=== PATIENT | female | born 1970 | race Hispanic/Latino ===

== ENCOUNTER 2020-03-20 10:59 | Inpatient (IN) | payer OTHER ==
[~2020-03-20] VITALS: Ht 162.6 cm; Wt 90.7 kg
[2020-03-20 11:44] LABS: BASOPHILS % 0.2 % (0.0-1.0); HEMATOCRIT 41.9 % (34.2-44.1); HEMOGLOBIN 13.7 g/dL (12.0-16.0); LYMPHOCYTES # (AUTO) 1.5 (1.0-3.2); LYMPHOCYTES % 31.5 % (18.0-39.1); MEAN CORPUSCULAR HEMOGLOBIN 27.7 pg (28-32); MEAN CORPUSCULAR HGB CONC 32.7 g/dL (31-35); MEAN CORPUSCULAR VOLUME 84.6 fL (81-99); MONOCYTES # (AUTO) 0.5 (0.2-0.8); MONOCYTES % 9.9 % (4.4-11.3); NEUTROPHILS # (AUTO) 2.8 (2.1-6.9); NEUTROPHILS % 58.2 % (38.7-80.0); PLATELET COUNT 266 x10e3/uL (140-360); RED BLOOD COUNT 4.95 x10e6/uL (3.6-5.1); RED CELL DISTRIBUTION WIDTH 12.9 % (11.7-14.4)
[2020-03-20 12:05] LABS: ALANINE AMINOTRANSFERASE 47 IU/L (0-55); ALBUMIN 3.6 g/dL (3.5-5.0); ALBUMIN/GLOBULIN RATIO 0.8 (0.8-2.0); ALKALINE PHOSPHATASE 71 IU/L (40-150); ANION GAP 13.6 mmol/L (8-16); BLOOD UREA NITROGEN 10 mg/dL (7-26); BUN/CREATININE RATIO 13 (6-25); CALCIUM 9.3 mg/dL (8.4-10.2); CARBON DIOXIDE 23 mmol/L (22-29); CHLORIDE 105 mmol/L (98-107); EST GLOMERULAR FILTRATION RATE > 60 ML/MIN (60-); GLUCOSE 113 mg/dL (74-118); POTASSIUM 3.6 mmol/L (3.5-5.1); SODIUM 138 mmol/L (136-145)
--- NOTE | 2020-03-20 13:06 | Diagnostic Imaging Report ---
EXAM: CHEST SINGLE (PORTABLE) DATE: 03/20/2020 12:40 PM INDICATION: Cold, chest pain COMPARISON: None FINDINGS/IMPRESSION: The trachea is midline. Mildly increased interstitial opacities present bilaterally with a lower lung zone predominance. Findings are nonspecific but can be seen in setting of edema or an atypical infectious/inflammatory process. There is no evidence for large focal consolidation, pneumothorax, or significant pleural effusion. The cardiomediastinal silhouette is within normal limits. No acute osseous abnormality is identified. Signed by: Dr. Diony Palacios MD on 03/20/2020 1:03 PM
--- NOTE | 2020-03-20 14:52 | Emergency Department Note ---
History of Present Illnes History of Present Illness Chief Complaint: COVID PUI History of Present Illness This is a 49 year old female arrives to the ED with complaints of cough fever and dyspnea on exertion. Chief Complaint Comment HERE FOR WEAKNESS, FEVER AND CHILLS AT HOME, DENIES SICK CONTACTS. FEEL AGITATED ON EXERTION. REPORTS COUGH, CONGESTION WELL. HAS BEEN OUT NOT WEARING A MASK. Historian: Patient Arrival Mode: Car Site Engineer Required: No Onset (how long ago): day(s) Severity: moderate Duration (how long): day(s) Timing of current episode: constant Progression: worsening Past Medical/Family History Physician Review I have reviewed the patient's past medical and family history. Any updates have been documented here. Past Medical History Recent Fever: No Clinical Suspicion of Infectio: No New/Unexplained Change in Ment: No Past Medical History: None Past Surgical History: None Social History Smoking Cessation: Never Smoker Counseling Performed: No Alcohol Use: None Any Illegal Drug Use: No TB Exposure/Symptoms: No Physically hurt or threatened: No Other Any Pre-Existing Lines (PICC,: No Is patient up to date on immun: Yes Last Flu: utd Last Pneumovax: utd Review of Systems Review of Systems Constitutional: chills, fever, malaise, weakness EENTM: no symptoms Cardiovascular: no symptoms Respiratory: no symptoms, cough, pain with cough Gastrointestinal: no symptoms Genitourinary: no symptoms Musculoskeletal: no symptoms Neurological: no symptoms Psychological: no symptoms Endocrine: no symptoms Hematological/Lymphatic: no symptoms Review of other systems All other systems reviewed and negative. Physical Exam Related Data Allergies: Coded Allergies: No Known Allergies (Unverified , 03/20/20) Triage Vital Signs Vital Signs Date Time Temp Pulse Resp B/P (MAP) Pulse Ox O2 Delivery O2 Flow Rate FiO2 03/20/20 11:08 100.6 86 16 107/74 94 Vital signs reviewed: Yes Physical Exam CONSTITUTIONAL Constitutional: well-developed, well-nourished, obese HENT HENT: normocephalic, atraumatic, oropharynx clear/moist, nose normal HENT L/R: left ext ear normal, right ext ear normal EYES Eyes: PERRL, conjunctivae normal NECK Neck: ROM normal PULMONARY Pulmonary: effort normal, breath sounds normal CARDIOVASCULAR Cardiovascular: regular rhythm, heart sounds normal, capillary refill normal, normal rate GASTROINTESTINAL Abdominal: soft, nontender, bowel sounds normal GENITOURINARY Genitourinary: exam deferred SKIN Skin: warm, dry MUSCULOSKELETAL Musculoskeletal: ROM normal, tenderness NEUROLOGICAL Neurological: alert, oriented x 3, no gross motor or sensory deficits PSYCHOLOGICAL Psychological: mood/affect normal, judgement normal Results Laboratory Result Diagram: 03/20/20 1140 03/20/20 1140 Laboratory Laboratory Tests Test 03/20/20 12:40 03/20/20 11:40 White Blood Count 4.85 x10e3/uL (4.8-10.8) Red Blood Count 4.95 x10e6/uL (3.6-5.1) Hemoglobin 13.7 g/dL (12.0-16.0) Hematocrit 41.9 % (34.2-44.1) Mean Corpuscular Volume 84.6 fL (81-99) Mean Corpuscular Hemoglobin 27.7 pg (28-32) Mean Corpuscular Hemoglobin Concent 32.7 g/dL (31-35) Red Cell Distribution Width 12.9 % (11.7-14.4) Platelet Count 266 x10e3/uL (140-360) Neutrophils (%) (Auto) 58.2 % (38.7-80.0) Lymphocytes (%) (Auto) 31.5 % (18.0-39.1) Monocytes (%) (Auto) 9.9 % (4.4-11.3) Eosinophils (%) (Auto) 0.0 % (0.0-6.0) Basophils (%) (Auto) 0.2 % (0.0-1.0) Neutrophils # (Auto) 2.8 (2.1-6.9) Lymphocytes # (Auto) 1.5 (1.0-3.2) Monocytes # (Auto) 0.5 (0.2-0.8) Eosinophils # (Auto) 0.0 (0.0-0.4) Basophils # (Auto) 0.0 (0.0-0.1) Absolute Immature Granulocyte (auto 0.01 x10e3/uL (0-0.1) Sodium Level 138 mmol/L (136-145) Potassium Level 3.6 mmol/L (3.5-5.1) Chloride Level 105 mmol/L (98-107) Carbon Dioxide Level 23 mmol/L (22-29) Anion Gap 13.6 mmol/L (8-16) Blood Urea Nitrogen 10 mg/dL (7-26) Creatinine 0.80 mg/dL (0.57-1.11) Estimat Glomerular Filtration Rate > 60 ML/MIN (60-) BUN/Creatinine Ratio 13 (6-25) Glucose Level 113 mg/dL (74-118) Calcium Level 9.3 mg/dL (8.4-10.2) Total Bilirubin 0.4 mg/dL (0.2-1.2) Aspartate Amino Transf (AST/SGOT) 36 IU/L (5-34) Alanine Aminotransferase (ALT/SGPT) 47 IU/L (0-55) Alkaline Phosphatase 71 IU/L (40-150) B-Type Natriuretic Peptide 12.7 pg/mL (0-100) Total Protein 8.0 g/dL (6.5-8.1) Albumin 3.6 g/dL (3.5-5.0) Globulin 4.4 g/dL (2.3-3.5) Albumin/Globulin Ratio 0.8 (0.8-2.0) Lab results reviewed: Yes Imaging Imaging results reviewed: Yes Procedures 12 Lead ECG Interpretation Rhythm: sinus rhythm Rate: normal ST segments normal: Yes Clinical Impression: normal ECG Critical Care Time Subsequent provider I assumed direction of critical care for this patient from another provider of my specialty. Assessment & Plan Assessment & Plan Final Impression: (1) DYSPNEA, UNSPECIFIED (2) COVID-19 Assessment & Plan History of similar to the ED with complaints of dyspnea and shortness of breath, found to be called if positive. Patient required hospital admission, pulmonary and infectious disease consult Depart Disposition: ADMITTED Last Vital Signs Date Time Temp Pulse Resp B/P (MAP) Pulse Ox O2 Delivery O2 Flow Rate FiO2 03/20/20 13:00 78 12 110/71 98 03/20/20 12:18 99.0 Home Meds Reported Medications Cephalexin Monohydrate (KEFLEX) 500 Mg Capsule 03/21/20 Azithromycin (Z-COURTNEY) 250 Mg Tablet, 250 MG PO UD, #1 UDPKT Z-Pack 03/21/20 Discontinued Reported Medications Triamcinolone Acet (TRIAMCINOLONE ACETONIDE) 15 Gm Cr 03/20/20 ALKA SAUCEDO DO Mar 20, 2020 14:52
[2020-03-20] MEDS ORDERED: TRIAMCINOLONE A15 G1 (15:13)
[2020-03-20 16:42] LABS: CLARITY,URINE SL CLOUDY (CLEAR); COLOR,URINE YELLOW (YELLOW); KETONES,URINE TRACE (NEGATIVE); LEUKOCYTE ESTERASE ,URINE NEGATIVE (NEGATIVE); NITRITE,URINE NEGATIVE (NEGATIVE); PROTEIN,URINE DIPSTICK 1+ (NEGATIVE)
[2020-03-20 16:43] LABS: BILIRUBIN,URINE NEGATIVE (NEGATIVE); URINE UROBILINOGEN 1 mg/dL (0.2 - 1)
[2020-03-20 16:55] LABS: AMORPHOUS SEDIMENT,URINE FEW (FEW); BACTERIA,URINE MODERATE /HPF; EPITHELIAL CELLS,URINE FEW /LPF; HYALINE CASTS 0-1 (0-1); RBC,URINE 0-5 /HPF (0-5)
--- NOTE | 2020-03-20 19:05 | Consultation ---
DATE OF CONSULTATION: Pulmonary Critical Care Consultation CHIEF COMPLAINT: Fever and cough for 5 days. HISTORY OF PRESENT ILLNESS: The patient is a 49-year-old woman. She has no prior cardiopulmonary history. She reports cough for 5 days. She also had fevers. She does not complain of dyspnea. She has no chest pain. No nausea or vomiting. She has no leg edema. PAST MEDICAL HISTORY: 1. No prior asthma or respiratory problems. 2. No prior heart problems. 3. No prior diabetes. PAST SURGICAL HISTORY: Noncontributory. ALLERGIES: NO KNOWN DRUG ALLERGIES. FAMILY HISTORY: Noncontributory. SOCIAL HISTORY: The patient is not a smoker. She is not a drinker. She lives at home with her kids and her . REVIEW OF SYSTEMS: Fever for 5 days. No headache. There is some cough. She is not having any chest pain. She has no shortness of breath. She has no abdominal pain. There is no nausea or vomiting. She has no leg edema. PHYSICAL EXAMINATION: VITAL SIGNS: The T-max is 100.6. The blood pressure is 105/68 and saturation is 96%. HEENT: Shows no facial swelling or erythema. CARDIAC: Reveals regular rate and rhythm with normal S1 and S2. LUNGS: Auscultation of lungs reveals crackles in both lung rodríguez. ABDOMEN: Soft and nontender. There is no rebound or guarding. EXTREMITIES: There is no leg edema. NEUROLOGIC: Shows no focal abnormalities. LABORATORY DATA: White blood cell count is 4.8 and the hemoglobin is 13.7. The platelet count is 266. BUN to creatinine ratio is normal. The other electrolytes are within normal limits. RADIOGRAPHIC DATA: Chest x-ray shows bilateral opacities suggestive of viral pneumonia. IMPRESSION: Viral pneumonia and COVID-19 infection. PLAN: 1. Observe in hospital. 2. Judicious use of IV fluids. 3. Avoid Motrin and use Tylenol. 4. Zithromax. 5. Consider convalescent plasma. Franklyn Newsome MD [facility]/BLAYNEL /[id number]
[2020-03-20] MEDS ORDERED: SODIUM CHLORIDE 0.9% 1000ML 1,000 ML IV SCH (19:15)
--- OUTSIDE RECORDS SUMMARY | 2020-03-20 19:31 | XMS REPORT | Continuity of Care Document ---
Author Author [facility] t Organization [facility] Address [address] 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 Allergies, Adverse Reactions, Alerts This patient has no known allergies or adverse reactions. Medications This patient has no known medications. Procedures This patient has no known procedures. Results Test Description Test Time Test Comments Results Result Comments Source CHEST SINGLE (PORTABLE) 2020-03-20 13:01:00 [place] [id number] Patient Name: TRISHA FOSTER MR #: [id number] : 1970 Age/Sex: 49/F Req #: [id number] Adm Physician: Ordered by: ALKA SAUCEDO DO Report #: [id number] Location: ER Room/Bed: Procedure: [id number] DX/CHEST SINGLE (PORTABLE) Exam Date: 03/20/20 Exam Time: 1240 REPORT STATUS: Signed EXAM: CHEST SINGLE (PORTABLE) DATE: 03/20/2020 12:40 PM INDICATION: Cold, chest pain COMPARISON: None FINDINGS/IMPRESSION: The trachea is midline. Mildly increased interstitial opacities present bilaterally with a lower lung zone predominance. Findings are nonspecific but can be seen in setting of edema or an atypical infectious/inflammatory process. There is no evidence for large focal consolidation, pneumothorax, or significant pleural effusion. The cardiomediastinal silhouette is within normal limits. No acute osseous abnormality is identified. Signed by: Dr. Diony Palacios MD on 03/20/2020 1:03 PM Dictated By: DIONY PALACIOS MD 1303 Transcribed By: SMA on 03/20/20 1303 COPY TO: ALKA SAUCEDO DO
[2020-03-20] MEDS ORDERED: CEFTRIAXONE SOD 1 GM/NS 50 ML 50 ML IV SCH (19:45)
[2020-03-20 20:00] VITALS: BP 105/70
[2020-03-20] MEDS ORDERED: AZITHROMYCIN 500MG/NS 250 ML 250 ML IV SCH (20:00)
--- NOTE | 2020-03-20 20:03 | NUR ---
Patient arrived to unit from ER via stretcher in stable condition, no s/s of distress at this time. Bed locked and in low position, side rails up x3, call light placed within reach. All safety measures in place. Will continue to monitor.
--- NOTE | 2020-03-20 21:19 | NUR ---
Spoke to Georgie BARAKAT regarding patient's elevated temperature of 101. Received orders to give Tylenol 650 mg PO Q6H PRN.
[2020-03-20 21:21] VITALS: BP 105/70
[2020-03-20] MEDS ORDERED: ACETAMINOPHEN 325 MG TAB PO PRN (21:30)
[2020-03-20 22:20] VITALS: BP 105/70
[2020-03-21] VITALS: BP 91/54
[2020-03-21 04:23] VITALS: BP 97/61
[2020-03-21 05:24] LABS: BASOPHILS % 0.2 % (0.0-1.0); EOSINOPHILS % 0.2 % (0.0-6.0); HEMATOCRIT 39.2 % (34.2-44.1); HEMOGLOBIN 12.9 g/dL (12.0-16.0); LYMPHOCYTES # (AUTO) 1.4 (1.0-3.2); LYMPHOCYTES % 32.6 % (18.0-39.1); MEAN CORPUSCULAR HEMOGLOBIN 27.9 pg (28-32); MEAN CORPUSCULAR HGB CONC 32.9 g/dL (31-35); MEAN CORPUSCULAR VOLUME 84.7 fL (81-99); MONOCYTES # (AUTO) 0.5 (0.2-0.8); MONOCYTES % 10.3 % (4.4-11.3); NEUTROPHILS # (AUTO) 2.5 (2.1-6.9); NEUTROPHILS % 56.5 % (38.7-80.0); PLATELET COUNT 235 x10e3/uL (140-360); RED BLOOD COUNT 4.63 x10e6/uL (3.6-5.1); RED CELL DISTRIBUTION WIDTH 12.8 % (11.7-14.4)
[2020-03-21 05:49] LABS: ALANINE AMINOTRANSFERASE 43 IU/L (0-55); ALBUMIN 3.1 g/dL (3.5-5.0); ALBUMIN/GLOBULIN RATIO 0.8 (0.8-2.0); ALKALINE PHOSPHATASE 61 IU/L (40-150); ANION GAP 13.3 mmol/L (8-16); BLOOD UREA NITROGEN 9 mg/dL (7-26); BUN/CREATININE RATIO 13 (6-25); CALCIUM 7.9 mg/dL (8.4-10.2); CARBON DIOXIDE 23 mmol/L (22-29); CHLORIDE 107 mmol/L (98-107); EST GLOMERULAR FILTRATION RATE > 60 ML/MIN (60-); GLUCOSE 107 mg/dL (74-118); POTASSIUM 3.3 mmol/L (3.5-5.1); SODIUM 140 mmol/L (136-145)
[2020-03-21 08:37] VITALS: BP 92/50
[2020-03-21 08:39] VITALS: BP 92/50
[2020-03-21] MEDS ORDERED: POTASSIUM CHLORIDE 20 MEQ TAB CR PO ONE (08:45)
[2020-03-21 12:00] VITALS: BP 107/71
--- NOTE | 2020-03-21 12:31 | NUR ---
consult [id number] seen on03/20/2020
--- NOTE | 2020-03-21 12:36 | NUR ---
progress note [id number] PHYSICAL EXAMINATION: VITAL SIGNS: stable The blood pressure is 105/68 and saturation is 96%. HEENT: Shows no facial swelling or erythema. CARDIAC: Reveals regular rate and rhythm with normal S1 and S2. LUNGS: Auscultation of lungs reveals crackles in both lung rodríguez. ABDOMEN: Soft and nontender. There is no rebound or guarding. EXTREMITIES: There is no leg edema. NEUROLOGIC: Shows no focal abnormalities. LABORATORY DATA: White blood cell count is 4.8 and the hemoglobin is 13.7. The platelet count is 266.
[2020-03-21] MEDS ORDERED: AZITHROMYCIN250 MG PO (14:35)
[2020-03-21] MEDS ORDERED: KEFLEX500 MG (14:35)
--- NOTE | 2020-03-21 14:49 | Consultation ---
DATE OF CONSULTATION: 03/20/2020 REASON FOR CONSULTATION: Pneumonia with COVID-19. HISTORY OF PRESENT ILLNESS: This patient, who is a 49-year-old female, no past medical history, comes in with fever and cough for 5 days. No shortness of breath. No nausea. No vomiting. No diarrhea. The patient was seen in the emergency room. She is being admitted. PAST MEDICAL HISTORY: Denies. PAST SURGICAL HISTORY: Denies. ALLERGIES: NKA. SOCIAL HISTORY: There is no smoking, drug abuse, or alcohol abuse. FAMILY HISTORY: Otherwise noncontributory. PHYSICAL EXAMINATION: GENERAL: She is currently alert and oriented. Does not seem to be in acute distress. VITAL SIGNS: Stable, currently afebrile. HEENT: She is not icteric. NECK: Supple. CHEST: Clear. HEART: S1 and S2. No S3, S4, or murmurs. ABDOMEN: Soft. IMPRESSION: COVID-19 pneumonia, present on admission. We will put the patient on oxygen as needed, Rocephin 1 g daily, Zithromax for community-acquired pneumonia, concerned bacteria. Observe the patient over the next 24 hours. We will follow. MD YNES Sherman/ANNABELLE /[id number]
--- NOTE | 2020-03-21 14:49 | Progress Note ---
DATE: SUBJECTIVE: Denise is feeling better today. There is no new complaint. REVIEW OF SYSTEMS: Otherwise unremarkable. PHYSICAL EXAMINATION: GENERAL: Currently alert, oriented. VITAL SIGNS: Stable, afebrile. HEENT: She is not icteric. NECK: Supple. CHEST: Clear. ABDOMEN: Soft. IMPRESSION: COVID-19 present on admission, clinically doing well. The patient will be discharged home with a Z-Bharathi and Keflex. Follow up as an outpatient. Supportive care. Cough syrup as needed and Tylenol as needed. She will follow. MD YNES Sherman/MODEvans /[id number]
--- NOTE | 2020-03-21 15:20 | Progress Note ---
DATE: SUBJECTIVE: The patient has no complaints. She is not complaining of dyspnea. She has minimal cough. She has no abdominal pain. She has no diarrhea. PHYSICAL EXAMINATION: VITAL SIGNS: The blood pressure is 107/71 and saturation is 98%. HEENT: Shows no facial swelling or erythema. CARDIAC: Reveals regular rate and rhythm with normal S1 and S2. LUNGS: Auscultation of lungs reveals clear breath sounds bilaterally. There is no wheezing. ABDOMEN: Soft and nontender. There is no rebound or guarding. EXTREMITIES: Shows no leg edema or calf tenderness. There is no cyanosis or clubbing. SKIN: Shows no rashes. LABORATORY DATA: White blood cell count is 4.3 and the hemoglobin is 12.9. The platelet count is 235. The BUN to creatinine ratio is 9 to 0.7 and the other electrolytes within normal limits. IMPRESSION: Viral pneumonia and COVID-19 infection. PLAN: 1. Okay for discharge home. 2. Complete Zithromax as an outpatient. 3. Tylenol. 4. Continue self-quarantine at home. Franklyn Newsome MD LM/MODL /[id number]
--- NOTE | 2020-03-21 15:40 | NUR ---
Pt discharged home at this time. 0 s/s acute distress noted. Denies any pain at time of discharge. Breaths are even and unlabored. Pt verbalized understanding of all discharge instructions and follow up appointments. Family member notified of pt discharge. Pt verbalized understanding of social distancing once she is at home.
[2020-03-21] MEDS ORDERED: CEFTRIAXONE SOD 1 GM/NS 50 ML 50 ML IV SCH (18:30)
--- NOTE | 2020-03-22 01:42 | Discharge Summary ---
ADMISSION DIAGNOSES: 1. Coronavirus disease 2019 pneumonia, present on admission. 2. Hypokalemia. 3. Possible urinary tract infection, present on admission. DISCHARGE DIAGNOSES: 1. Coronavirus disease 2019 pneumonia, present on admission. 2. Hypokalemia. 3. Possible urinary tract infection, present on admission. MEDICAL HISTORY: None. SURGICAL HISTORY: None. FAMILY HISTORY: The patient's brother had diabetes. The patient's sister had cancer. The patient's mom had a stroke. SOCIAL HISTORY: Noncontributory. HOSPITAL COURSE: A 49-year-old female, admits with complaints of weakness, dry cough, and chills at home since Tuesday. She denies fever and dyspnea on exertion. She has not traveled and has no sick contacts. She admits that she did not wear the face mask as CDC recommended when going out in public. Chest x-ray showed cardiomediastinal silhouette within normal limits. Mildly increased interstitial opacities present bilaterally in the lower lung zone predominant. No evidence of large focal consolidation, pneumothorax, or significant pleural effusion. The patient's UA showed moderate bacteria. She will discharge home with Z-Bharathi and Keflex per Infectious Disease. She also does not qualify for home oxygen upon assessment. She will discharge home and was advised to stay away from family. She will follow up with primary care and Dr. Toscano in 1 to 2 weeks. The patient understands instructions and agrees to plan. Dictated by Georgie Choudhury NP MD [facility]/BLAYNEL /[id number]
== END 2020-03-21 15:40 | disposition home or self-care (01) | DRG 177 ==
LOC: ER 10:59 → ERHOLD 18:59 → IMCU 20:04
PROVIDERS: ADMIT Internal Medicine; ATTEND Internal Medicine
DX: U07.1 COVID-19 (principal); J12.89 Other viral pneumonia; N39.0 Urinary tract infection, site not specified; E87.6 Hypokalemia
CPT/HCPCS: 36415; 71045; 80053; 81001; 83880; 85025; 87086; 87635; 93005; 99284; J0456; J0696; J7030

== ENCOUNTER 2021-05-16 10:43 | Emergency (ER) | payer SELFPAY ==
[~2021-05-16] VITALS: Ht 157.5 cm; Wt 98.9 kg
[~2021-05-16 10:43] MED LIST: AZITHROMYCIN250 MG PO; KEFLEX500 MG; TRIAMCINOLONE A15 G1
[2021-05-16] MEDS ORDERED: SODIUM CHLORIDE 0.9% 1000ML 1,000 ML IV STA (10:52)
[2021-05-16] MEDS ORDERED: ONDANSETRON HCL INJ 2MG/ML 2ML 2 MG/ML VIAL IV STA (10:52)
[2021-05-16] MEDS ORDERED: DICYCLOMINE HCL 20 MG/2 ML VIAL IM ONE (11:00)
[2021-05-16 11:07] LABS: BASOPHILS % 0.4 % (0.0-1.0); EOSINOPHILS # (AUTO) 0.2 (0.0-0.4); EOSINOPHILS % 3.4 % (0.0-6.0); HEMOGLOBIN 12.9 g/dL (12.0-16.0); LYMPHOCYTES # (AUTO) 1.6 (1.0-3.2); LYMPHOCYTES % 28.9 % (18.0-39.1); MEAN CORPUSCULAR HEMOGLOBIN 27.4 pg (28-32); MEAN CORPUSCULAR HGB CONC 31.5 g/dL (31-35); MONOCYTES # (AUTO) 0.7 (0.2-0.8); MONOCYTES % 11.5 % (4.4-11.3); NEUTROPHILS # (AUTO) 3.1 (2.1-6.9); NEUTROPHILS % 55.6 % (38.7-80.0); PLATELET COUNT 304 x10e3/uL (140-360); RED BLOOD COUNT 4.71 x10e6/uL (3.6-5.1); RED CELL DISTRIBUTION WIDTH 13.2 % (11.7-14.4)
[2021-05-16 11:16] LABS: CLARITY,URINE CLEAR (CLEAR); COLOR,URINE YELLOW (YELLOW)
[2021-05-16 11:17] LABS: KETONES,URINE NEGATIVE (NEGATIVE); LEUKOCYTE ESTERASE ,URINE NEGATIVE (NEGATIVE); NITRITE,URINE NEGATIVE (NEGATIVE); PROTEIN,URINE DIPSTICK NEGATIVE (NEGATIVE); URINE UROBILINOGEN 0.2 mg/dL (0.2 - 1)
[2021-05-16 11:25] LABS: ALANINE AMINOTRANSFERASE 24 IU/L (0-55); ALBUMIN 3.6 g/dL (3.5-5.0); ALBUMIN/GLOBULIN RATIO 0.9 (0.8-2.0); ALKALINE PHOSPHATASE 66 IU/L (40-150); ANION GAP 15.2 mmol/L (8-16); BLOOD UREA NITROGEN 9 mg/dL (7-26); BUN/CREATININE RATIO 12 (6-25); CALCIUM 8.8 mg/dL (8.4-10.2); CARBON DIOXIDE 23 mmol/L (22-29); CHLORIDE 108 mmol/L (98-107); CREATINE KINASE 46 IU/L (29-168); CREATININE, SERUM 0.76 mg/dL (0.57-1.11); EST GLOMERULAR FILTRATION RATE 80 ML/MIN (60-); GLUCOSE 113 mg/dL (74-118); LIPASE 24 U/L (8-78); MAGNESIUM 2.1 MG/DL (1.3-2.1); POTASSIUM 4.2 mmol/L (3.5-5.1); SODIUM 142 mmol/L (136-145)
[2021-05-16 11:26] LABS: BACTERIA,URINE RARE /HPF; WBC,URINE (MAN) 0-5 /HPF (0-5)
[2021-05-16 11:27] LABS: EPITHELIAL CELLS,URINE FEW /LPF; MUCUS,URINE FEW (RARE)
== END 2021-05-16 12:34 | disposition home or self-care (01) ==
LOC: ER 11:30
DX: R19.7 Diarrhea, unspecified (principal); R10.11 Right upper quadrant pain
CPT/HCPCS: 36415; 80053; 81001; 82550; 82553; 83690; 83735; 84484; 84702; 85025; 87086; 93005; 99284; C9113; J2405; J7030